=== PATIENT | female | born 1980 ===

== ENCOUNTER 2022-07-23 07:38 | Day surgery (SDC) | payer BC ==
[~2022-07-23 07:38] MED LIST: Lactated Ringers 1,000 ML IV SCH; Lidocaine 1% 5 ML VIAL ONE; Lidocaine 1%/Sod Bicarbonate in NS 8.4% 1 ML Syringe IDERM PRN; Midazolam 1 MG/ML 2 ML SDV ONE; Ondansetron 4 MG/2 ML SDV ONE; Propofol 200 MG/20 ML SDV ONE; Sodium Chloride 0.9% 10 ML Syringe FLUSH PRN; Sodium Chloride 0.9% 10 ML Syringe FLUSH SCH; fentaNYL 100 MCG/2 ML SDV ONE
[2022-07-23] MEDS ORDERED: ceFAZolin 2 GM Vial ONE (07:39)
[2022-07-23] MEDS ORDERED: fentaNYL 100 MCG/2 ML SDV IVPUSH PRN (07:58)
[2022-07-23] MEDS ORDERED: Ondansetron 4 MG/2 ML SDV IVPUSH PRN ×2 (07:58→09:43)
[2022-07-23] MEDS ORDERED: HYDROmorphone 0.5 MG/0.5 ML Syringe IVPUSH PRN (07:58)
[2022-07-23] MEDS ORDERED: Dexamethasone 4 MG/ML 5 ML MDV ONE (08:12)
[2022-07-23] MEDS ORDERED: Bupivacaine 0.25%/EPINEPHrine 1:200,000 30 ML SDV ONE (08:22)
[2022-07-23] MEDS ORDERED: Oxymetazoline 0.05% Nasal Spray 30 ML Bottle NAS ONE (08:53)
[2022-07-23] MEDS ORDERED: Ketorolac 30 MG/ML SDV ONE (09:28)
[2022-07-23] MEDS ORDERED: ePHEDrine 50 MG/ML SDV ONE (09:39)
[2022-07-23] MEDS ORDERED: Lactated Ringers 1,000 ML ONE (09:45)
[2022-07-23] MEDS ORDERED: Ketorolac 30 MG/ML SDV IVPUSH ONE (09:45)
[2022-07-23] MEDS ORDERED: Ibuprofen 600 MG Tab PO PRN (15:30)
== END 2022-07-23 11:32 | disposition home or self-care (01) ==
LOC: JD.SDS 07:38
PROVIDERS: ATTEND Obstetrics & Gynecology
DX: N81.10 Cystocele, unspecified (principal); N81.6 Rectocele; R33.9 Retention of urine, unspecified; F17.210 Nicotine dependence, cigarettes, uncomplicated; Z98.890 Other specified postprocedural states
CPT/HCPCS: 57240; 81025; A9270; J0690; J1100; J1885; J2250; J2405; J2704; J3010; J7120; 00942; J3490